=== PATIENT | female | born 1960 | race Caucasian/White ===

== ENCOUNTER 2025-02-18 08:57 | Outpatient (CLI) | payer OTHER, SELFPAY ==
[2025-02-18] VITALS (7 sets, daily range): BP systolic 170–177; BP diastolic 84–93; PULSE 64–79; RESP 20–28; TEMP 36.6; O2SAT 96–100
--- NOTE | 2025-02-18 06:00 | DI.RAD_ITS ---
Exam(s) XR PAIN CLINIC LUMBAR SP 2V EXAM: XR PAIN CLINIC LUMBAR SP 2V CLINICAL HISTORY: Dx: Lumbar Spondylosis TECHNIQUE: 2D and realtime digital imaging was performed. Radiologist not present. CONTRAST MATERIAL: None. COMPARISON: No exams were available for comparison FINDINGS: Fluoroscopy was provided for pain management therapy. Lumbar medial branch block Please refer to procedure report or details. Radiation Exposure Index: Ka,r=17.08 mGy IMPRESSION: As above. RADIATION DOSE DELIVERED:
--- NOTE | 2025-02-18 09:54 | PDOC.PAIN ---
Date of service: 02/18/25 Time of Service: 09:54 Pain Managment Procedure Note Procedure Note Procedure Note: PROCEDURE NOTE Bilateral Lumbar Medial Branch Blocks Date of Service: February 18, 2025 Patient: Sandra Mckeon Provider: Surjit Mascorro DO, MPH Sandra Mckeon has been referred to [facility] for lumbar medial branch blocks. Pre-operative diagnosis: Lumbar Spondylosis without Myelopathy ICD-10 M47.816 Post-operative diagnosis: Same Pre-procedure pain: VAS= 7/10 COMMENTS: She was previously seen in the office. Lumbar facet medial branch blocks were recommended at the bilateral L3-L4 and L4-L5 facet joints. Elma was interviewed and the medical records were reviewed. There were no medical, pharmacologic, radiographic or other structural contraindications to attempting fluoroscopically guided local anesthetic lumbar medial branch blocks. Risks and potential side effects were discussed. I also discussed the potential benefit(s) of the procedure with Sandra, and voiced concerns were addressed. After Sandra was completely informed about the procedure, the printed consent form was signed. A standard time-out procedure was performed. Sandra was placed in the prone position on the fluoroscopy table. Automated blood pressure cuff and pulse oximeter were applied. The skin entry points for approaching the anatomic target points of the segmental medial branches of bilateral L2, L3, and L4 were identified with fluoroscopy and marked. The skin at the target site area was thoroughly prepared with Chlorhexadine. The skin was then draped. Next, a 25 gauge 3.5 spinal needle was placed under fluoroscopic guidance down on to the target point (the articular pillar) for each respective segmental medial branch. Position was confirmed in A/P and lateral views. Aspiration revealed no blood or clear fluid. Next, 0.25ml of omnipaque 240 was injected at each level. No contrast following a vascular or neural pattern was visualized under continuous fluoroscopy. Next, 0.25 ml of preservative-free 0.5% bupivicaine was injected at each level. There was no unusual discomfort expressed by Sandra. The needles were withdrawn without difficulty. (49 mls of Omnipaque was wasted) Sandra was observed and was without hemodynamic, neurologic, or allergic reactions.? Fluoroscopic images were digitally archived. Provacative testing using the Modified De La Cruz's facet loading test- Left side Right Side Directly before the block VAS (0-10) = 7/10 VAS (0-10) = 7/10 Five minutes after the block VAS (0-10) = 1/10 VAS (0-10) = 1/10 Percentage relief obtained with this diagnostic block 80% 80% Any improved physical functioning directly after the blocks? Able to move her low back with much more ease Follow up plans and appointments were discussed with Sandra. Sandra was instructed to keep careful note of how the usual pain was modified by these injections. Specifically, to keep a pain diary for the next 4 hours using a numeric pain scale of 0-10 and report these results. Post procedure instruction was given as documented in the nursing documentation and having met discharge criteria, the patient was [facility] the [facility]. Based on the medial branches blocked today, if they patient has adequate relief and we are able to proceed to radiofrequency ablation, the treatment should result in the denervation of the bilateral L3-L4 and L4-L5 facet joints. We would expect to denervate a total of 4 facets during the radiofrequency ablation. COMMENTS: No apparent complications. Post-procedure pain: VAS= 1/10 Sandra will call back with 0-4 hour post-procedure pain scores. I personally performed the entire procedure. SURJIT MASCORRO DO, MPH ABPM&R-subspecialty board certification in Pain Medicine [facility] Coding Conscious Sedation used for procedure: No CPT Codes: LMBB (includes Fluoro) Lumbar/Sacral, 2nd lvl - 30808 ([id number] ~G) LMBB (includes Fluoro) Lumbar/Sacral, single lvl *BILATERAL* - [id number] ([id number]~G5) Additional Codes: Date of Service (73582) Date of service: 02/18/25
[2025-02-18] MEDS: Omnipaque 240 MG/ML 50 ML BTL IJ (10:01)
[2025-02-18] MEDS: Nerve Block Tray 1 EACH MC (10:02)
[2025-02-18] MEDS: Bupivacaine 0.5% Pres-Free 10 ML VIAL IJ (10:02)
== END 2025-02-18 08:58 | disposition home or self-care (01) ==
LOC: PC 08:58
PROVIDERS: PCP Internal Medicine; Visit Provider Preventive Medicine Occupational Medicine
DX: M47.816 Spondylosis without myelopathy or radiculopathy, lumbar region (principal)
CPT/HCPCS: 64493; 64494; 72100; J0665; Q9967

== ENCOUNTER 2025-04-14 09:50 | Outpatient (CLI) | payer OTHER, SELFPAY ==
--- NOTE | 2025-04-14 06:00 | DI.RAD_ITS ---
Exam(s) XR PAIN CLINIC LUMBAR SP 2V EXAM: XR PAIN CLINIC LUMBAR SP 2V CLINICAL HISTORY: Dx: Lumbar Radiculopathy TECHNIQUE: 2D and realtime digital imaging was performed. CONTRAST MATERIAL: Refer to procedure report. COMPARISON: No exams were available for comparison FINDINGS: Fluoroscopy was provided for Dr. Mascorro during the performance of a lumbar epidural steroid injection. Please refer to the procedure report for complete details. Ka,r=10.9 mGy IMPRESSION: RADIATION DOSE DELIVERED: 0.0 0.0 0
[2025-04-14 10:02] VITALS: BP 143/77; PULSE 67; RESP 18; TEMP 36.5; O2SAT 98
[2025-04-14 10:45] VITALS: PULSE 78; O2SAT 95
[2025-04-14 10:46] VITALS: BP 173/85; PULSE 76; RESP 19; O2SAT 98
[2025-04-14 10:50] VITALS: PULSE 79; PULSE 80; RESP 18
[2025-04-14] MEDS: methylPREDNISolone ACETATE 80 MG/ML VIAL IJ (10:57)
[2025-04-14] MEDS: Epidural Tray 1 EACH MC (10:57)
[2025-04-14] MEDS: Omnipaque 240 MG/ML 50 ML BTL IJ (10:57)
--- NOTE | 2025-04-14 10:58 | PDOC.PAIN ---
Date of service: 04/14/25 Time of Service: 10:58 Pain Managment Procedure Note Procedure Note Procedure Note: PROCEDURE NOTE LUMBAR EPIDURAL STEROID INJECTION Date of Service: April 14, 2025 Patient:Sandra Perry? Provider: Surjit Mascorro DO, MPH Sandra Mckeon has been referred to the [facility] for a lumbar epidural steroid injection. Pre-operative diagnosis: Lumbosacral Radiculopathy ICD-10 M54.16 Post-operative diagnosis: Same Pre-Procedure Pain: VAS= 7 /10 Comments: She was previously seen in our office. Sandra was interviewed and the medical record was reviewed.? There were no medical, pharmacologic, radiographic or other structural contraindications to attempting fluoroscopically guided Lumbar epidural steroid injection.? Risks, potential side effects, indications, and potential benefits of the procedure were reviewed with Sandra.? Questions and concerns were addressed.? After it was clear that Sandra was fully informed about the procedure, the printed consent form was signed by the patient and myself.? Sandra was placed in the prone position on the fluoroscopy table and automated blood pressure cuff and pulse oximeter applied. The skin entry point for entering/approaching the epidural space for the lumbar epidural steroid injection was marked. Following thorough chlorhexadine preparation of the skin and draping and 1% lidocaine infiltration of the skin entry point and subcutaneous tissues, an 18 gauge Touhy needle was placed and advanced under fluoroscopic guidance and with loss of resistance technique into the L5-S1 epidural space. Needle tip placement and depth were aided and confirmed by fluoroscopy. There was no paresthesia or return of blood or CSF through the needle. 1 mls of Omnipaque 240 was injected with clear epidural spread confirmed with fluoroscopy. 80 mg of Depo-Medrol was? injected. This was followed by 1 ml of preservative-free normal saline to flush the steroid out of the needle. There was no unusual discomfort expressed by Sandra. The needle was withdrawn without difficulty. (49 mls of Omnipaque was wasted) Sandra was observed and was without hemodynamic, neurologic, or allergic reactions.? Fluoroscopic images were digitally archived. Sandra's vital signs were stable throughout the procedure and were as recorded in nursing records. Follow up plans and appointments were discussed with Sandra. Post procedure instruction was given as documented in nursing records and having met discharge criteria Sandra was discharged from the [facility]. COMMENTS: No apparent complications. Post-procedure pain: VAS= 3/10. Sandra to contact [facility] as needed. If at least 50% improvement in pain and/or function for at least 3 months is achieved, this procedure can be repeated. I personally performed this entire procedure. SURJIT MASCORRO DO, MPH ABPMR-subspecialty board certification in Pain Medicine [facility] Coding Conscious Sedation used for procedure: No CPT Codes: Inj Spine L/S w/Imaging - 37176 ([id number] ~G) Additional Codes: Date of Service (76550) Date of service: 04/14/25 Diagnoses: Lumbar radiculopathy
== END 2025-04-14 09:51 | disposition home or self-care (01) ==
LOC: PC 09:50
PROVIDERS: PCP Internal Medicine; Visit Provider Preventive Medicine Occupational Medicine
DX: M54.16 Radiculopathy, lumbar region (principal)
CPT/HCPCS: 62323; 72100; J1010; Q9967